=== PATIENT | female | born 1965 | race African-American/Black ===

== ENCOUNTER 2017-01-19 09:15 | Inpatient (IN) | payer MEDICAID ==
[~2017-01-19] VITALS: Ht 162.6 cm; Wt 109.7 kg
[2017-01-19] MEDS ORDERED: ASPIRIN 81MG TABLET PO STA (10:18)
[2017-01-19 10:47] LABS: BASOPHILS % 0.7 % (0.0-2.0); HEMATOCRIT. 33.6 % (36.0-48.0); HEMOGLOBIN. 11.5 g/dL (12.0-16.0); LYMPHOCYTES % 24.4 % (20.0-50.0); MEAN CORPUSCULAR HEMOGLOBIN 29.9 pg (28.0-32.0); MEAN CORPUSCULAR VOLUME 87.4 fL (81.0-99.0); MEAN PLATELET VOLUME 8.1 fl (7.4-10.4); MONOCYTES % 8.7 % (2.0-8.0); NEUTROPHILS % 65.2 % (40.0-76.0); PLATELET 311 x1000/uL (130-400); RED BLOOD CELL COUNT 3.85 mill/uL (4.2-5.4); RED CELL DISTRIBUTION WIDTH 13.7 % (11.6-14.6)
[2017-01-19 11:05] LABS: CARBON DIOXIDE 29 mEq/L (21-32); CHLORIDE 105 mEq/L (98-107); TROPONIN I < 0.02 ng/mL (0.00-0.04)
[2017-01-19 11:43] LABS: D-DIMER 0.33 mg/L FEU (<0.50); PARTIAL THROMBOPLASTIN TIME 23.9 sec (23.4-31.0); PROTHROMBIN TIME 10.7 sec (9.4-11.6)
[2017-01-19] MEDS ORDERED: CYAN10009 PO (15:27)
[2017-01-19] MEDS ORDERED: LOSA25TA3 PO (15:27)
[2017-01-19] MEDS ORDERED: FERR1POW3 MC (15:29)
[2017-01-19] MEDS ORDERED: NITROGLYCERIN 0.4MG TABLET SL SL PRN (15:45)
[2017-01-19] MEDS ORDERED: GUAIFENESIN-DM 200MG-20MG/10ML UDC PO PRN (15:45)
[2017-01-19 15:58] VITALS: BP 164/83
[2017-01-19 16:00] VITALS: BP 164/83
[2017-01-19] MEDS ORDERED: HYDR12.529 PO (17:22)
[2017-01-19] MEDS ORDERED: DIXL10 PO (17:24)
[2017-01-19] MEDS ORDERED: OMEP20CA10 PO (17:24)
[2017-01-19] MEDS ORDERED: MAGNESIUM/ALUMINUM HYDROXIDE/SIMETHICONE 30ML UDC PO PRN (17:45)
[2017-01-19] MEDS ORDERED: REGADENOSON 0.4 MG/5 ML IV NR (18:00)
[2017-01-19] MEDS: LOSARTAN POTASSIUM 50 MG TABLET PO SCH (18:38)
[2017-01-19 19:55] LABS: PHOSPHORUS 2.9 mg/dL (2.5-4.9)
[2017-01-19 20:00] VITALS: BP 133/68
[2017-01-19] MEDS: ENOXAPARIN 30MG/0.3ML SYR SUBCUT SCH (21:34)
[2017-01-20] VITALS: BP 148/88
[2017-01-20 00:56] LABS: CREATINE KINASE 94 IU/L (26-192); CREATINE KINASE MB FRACTION 0.9 ng/mL (0.5-3.6); TROPONIN I < 0.02 ng/mL (0.00-0.04)
[2017-01-20 04:00] VITALS: BP 142/72
[2017-01-20 07:12] LABS: CREATINE KINASE 87 IU/L (26-192); CREATINE KINASE MB FRACTION 0.6 ng/mL (0.5-3.6); TROPONIN I < 0.02 ng/mL (0.00-0.04)
[2017-01-20] MEDS ORDERED: OMEPRAZOLE 20MG CAPSULE EXTENDED RELEASE PO SCH (07:20)
[2017-01-20 08:04] VITALS: BP 148/80
[2017-01-20] MEDS ORDERED: REGADENOSON 0.4 MG/5 ML IV ONE (09:12)
[2017-01-20] MEDS: ENOXAPARIN 30MG/0.3ML SYR SUBCUT SCH (11:00)
[2017-01-20] MEDS: LOSARTAN POTASSIUM 50 MG TABLET PO SCH (11:00)
[2017-01-20 11:15] VITALS: BP 131/59
[2017-01-20 16:06] VITALS: BP 113/55
[2017-01-20 17:58] VITALS: BP 113/55
[2017-01-20 19:04] LABS: CREATINE KINASE 94 IU/L (26-192); CREATINE KINASE MB FRACTION 0.9 ng/mL (0.5-3.6); TROPONIN I < 0.02 ng/mL (0.00-0.04)
[2017-01-20] MEDS ORDERED: ENOXAPARIN 40MG/0.4ML SYR SUBCUT SCH (21:00)
== END 2017-01-20 20:50 | disposition home or self-care (01) | DRG 243 ==
LOC: ER 10:06 → EDBEDREQ 10:26 → 6WST 13:26 → EDBEDREQ 13:36 → EDBEDREQTM 13:36 → ENRESERV 14:10
PROVIDERS: ADMIT Internal Medicine Pulmonary Disease; ATTEND Internal Medicine Pulmonary Disease
DX: K21.9 Gastro-esophageal reflux disease without esophagitis (principal); Z68.41 Body mass index [BMI] 40.0-44.9, adult; I10 Essential (primary) hypertension; E11.9 Type 2 diabetes mellitus without complications; E66.9 Obesity, unspecified; K58.9 Irritable bowel syndrome, unspecified; K59.09 Other constipation; Z88.8 Allergy status to other drugs, medicaments and biological substances; Z90.49 Acquired absence of other specified parts of digestive tract; Z98.51 Tubal ligation status; Z80.1 Family history of malignant neoplasm of trachea, bronchus and lung
CPT/HCPCS: 36415; 71010; 78452; 80053; 82550; 82553; 83735; 83880; 84100; 84484; 85025; 85379; 85610; 85730; 93005; 93017; 99285; A9500; J1650; J2785